=== PATIENT | female | born 1950 | race Caucasian/White ===

== ENCOUNTER 2018-06-24 12:07 | Inpatient (IN) | payer MEDICARE, MEDICAID ==
[~2018-06-24] VITALS: Ht 168.9 cm; Wt 142.9 kg
[~2018-06-24 12:07] MED LIST: ALBU8.5H8 INH; AMLO10TA8 PO; ARIP15TA3 PO; CITA20TA6 PO; CLOP75TA PO; FLUT1DIS3 INH; LAMO100T PO; LISI-170 PO; METF500T17 PO; METO25TA35 PO; MONT10TA9 PO; NITR0.4T28 SL; OMEP40CA6 PO
[2018-06-24 15:25] VITALS: BP 140/98
[2018-06-24] MEDS ORDERED: PLEASE ENTER HEIGHT AND WEIGHT MC SCH (16:30)
[2018-06-24] MEDS ORDERED: DEXTROSE 4 GM TAB.CHEW PO PRN (17:00)
[2018-06-24] MEDS ORDERED: LABETALOL 5MG/ML, 20ML IVPush PRN (17:00)
[2018-06-24] MEDS ORDERED: ENALAPRILAT 1.25 MG/ML, 2ML IVPush PRN (17:00)
[2018-06-24] MEDS ORDERED: DEXTROSE 50%, 50ML SYRINGE IVPush PRN (17:00)
[2018-06-24] MEDS ORDERED: GLUCAGON 1 MG IM PRN (17:00)
[2018-06-24] MEDS ORDERED: TEMPLATE NON-FORMULARY MED. (Albuterol Sulfate (Proair Hfa) 2 PUFFS) INH PRN (17:00)
[2018-06-24] MEDS ORDERED: ALBUTEROL/IPRATROPIUM 2.5MG/0.5MG, 3 ML NPPB PRN (17:30)
[2018-06-24] MEDS: HEPARIN 5,000 UNITS/ML, 1ML SQ SCH (17:50)
[2018-06-24 17:57] LABS: TROPONIN I < 0.015 ng/mL (0.000-0.045)
[2018-06-24 18:03] LABS: THYROID STIMULATING HORMONE 0.241 mIU/L (0.358-3.740)
[2018-06-24 18:26] LABS: MICROSCOPIC NOT IND
[2018-06-24] MEDS: POLYETHYLENE GLYCOL 17 GM PACKET PO PRN (18:26)
[2018-06-24] MEDS: HYDROcodone/APAP 5/325 TABLET PO PRN ×2 (18:27→22:54)
[2018-06-24 18:42] LABS: CULTURE INDICATED? NO
[2018-06-24] MEDS ORDERED: GABA300C10 PO (18:56)
[2018-06-24] MEDS ORDERED: HYDR200T72 PO (18:56)
[2018-06-24] MEDS ORDERED: FURO40TA6 PO (18:56)
[2018-06-24] MEDS ORDERED: PRIM250T34 PO (18:56)
[2018-06-24] MEDS ORDERED: ATOR40TA78 PO (18:56)
[2018-06-24] MEDS ORDERED: ASPI81TA45 PO (18:56)
[2018-06-24] MEDS ORDERED: HYDR-3307 PO (18:56)
[2018-06-24 19:25] VITALS: BP 158/88
[2018-06-24] MEDS ORDERED: CLOPIDOGREL 75 MG TABLET PO SCH (21:00)
[2018-06-24] MEDS ORDERED: AMLODIPINE 10 MG TAB PO SCH (21:00)
[2018-06-24 22:51] LABS: TROPONIN I < 0.015 ng/mL (0.000-0.045)
[2018-06-24] MEDS: TEMPLATE NON-FORMULARY MED. (Fluticasone/Salmeterol** (Advair 250-50 Diskus**) 1 PUFF) INH SCH (22:52)
[2018-06-24] MEDS: CITALOPRAM 20 MG TABLET PO SCH (22:54)
[2018-06-24] MEDS: DOCUSATE 100 MG CAPSULE PO SCH (22:54)
[2018-06-24] MEDS: INSULIN LISPRO 100 UNITS/ML, PEN SQ-INSULIN SCH (22:57)
[2018-06-24] MEDS: SODIUM CHLORIDE FLUSH 10ML SYR IVF SCH (23:00)
[2018-06-25] VITALS (10 sets, daily range): BP systolic 88–144; BP diastolic 50–82
[2018-06-25] MEDS ORDERED: MAGNESIUM SULFATE PMX 2GM/50ML 50 ML IV ONE
[2018-06-25] MEDS: HEPARIN 5,000 UNITS/ML, 1ML SQ SCH ×2 (00:49→10:09)
[2018-06-25] MEDS: HYDROcodone/APAP 5/325 TABLET PO PRN ×3 (05:40→16:10)
[2018-06-25] MEDS: ASPIRIN 325 MG TABLET EC PO SCH (05:40)
[2018-06-25] MEDS: OMEPRAZOLE 20 MG CAPSULE.DR PO SCH (05:40)
[2018-06-25 06:15] LABS: BASOPHILS % (AUTO) 0 % (0-1); EOSINOPHILS % (AUTO) 0 % (1-7); LYMPHOCYTES # (AUTO) 1.69 x10^3/uL (1-3.4); LYMPHOCYTES % (AUTO) 12 % (22-44); MD NO; MEAN CORPUSCULAR HEMOGLOBIN 24.5 pg (27.0-34.8); MEAN CORPUSCULAR HGB CONC 32.6 g/dL (32.4-35.8); MEAN CORPUSCULAR VOLUME 75.3 fL (80-100); MONOCYTES # (AUTO) 0.95 x10^3/uL (0.2-0.8); MONOCYTES % (AUTO) 7 % (2-9); NEUTROPHILS % (AUTO) 82 % (42-75); PLATELET COUNT 423 x10^3/uL (130-400); RED CELL DISTRIBUTION WIDTH 19.1 % (9.6-15.2)
[2018-06-25 06:26] LABS: CHLORIDE 108 mmol/L (98-107)
[2018-06-25 06:38] LABS: ALANINE AMINOTRANSFERASE 29 U/L (12-78); ALBUMIN 3.2 g/dL (3.4-5.0); ALKALINE PHOSPHATASE 71 U/L (45-117); ANION GAP 4 mmol/L (5-15); BILIRUBIN,TOTAL 0.2 mg/dL (0.2-1.0); CALCIUM 8.6 mg/dL (8.5-10.1); CREATININE 0.69 mg/dL (0.55-1.02); TOTAL PROTEIN 6.9 g/dL (6.4-8.2)
[2018-06-25] MEDS ORDERED: POTASSIUM CHLORIDE 20 MEQ TAB.ER.PRT PO ONE (07:00)
[2018-06-25] MEDS: INSULIN LISPRO 100 UNITS/ML, PEN SQ-INSULIN SCH ×4 (07:00→20:29)
[2018-06-25 07:35] LABS: FREE T4 (FREE THYROXINE) 0.91 ng/dL (0.76-1.46)
[2018-06-25 07:52] LABS: INTERNATIONAL NORMALIZED RATIO 0.99 (0.93-1.1); PROTHROMBIN TIME 10.4 Seconds (9.6-11.5)
[2018-06-25] MEDS: TEMPLATE NON-FORMULARY MED. (Fluticasone/Salmeterol** (Advair 250-50 Diskus**) 1 PUFF) INH SCH ×2 (09:00→20:28)
[2018-06-25] MEDS: ACETAMINOPHEN 325 MG TABLET PO PRN (10:10)
[2018-06-25] MEDS: SODIUM CHLORIDE FLUSH 10ML SYR IVF SCH ×2 (10:11→20:10)
[2018-06-25] MEDS: DOCUSATE 100 MG CAPSULE PO SCH ×2 (10:11→20:09)
[2018-06-25] MEDS ORDERED: SODIUM CHLORIDE 0.9% 1,000 ML IV SCH ×2 (11:00→20:00)
[2018-06-25] MEDS: CALCIUM CARBONATE 500 MG TAB.CHEW PO PRN (11:17)
[2018-06-25] MEDS: NITROGLYCERIN 0.4 MG BOTTLE (25 TABS) SL PRN ×2 (11:22→11:29)
[2018-06-25 12:31] LABS: TROPONIN I < 0.015 ng/mL (0.000-0.045)
[2018-06-25] MEDS ORDERED: VERAPAMIL 2.5 MG/ML, 2ML ONE (13:07)
[2018-06-25] MEDS ORDERED: BIVALIRUDIN 250 MG ONE ×2 (13:07→13:38)
[2018-06-25] MEDS ORDERED: FENTANYL PF 100 MCG/2ML ONE (13:07)
[2018-06-25] MEDS ORDERED: MIDAZOLAM 1 MG/ML, 5ML ONE (13:07)
[2018-06-25] MEDS ORDERED: LIDOCAINE 1%, 20ML ONE (13:07)
[2018-06-25] MEDS ORDERED: HEPARIN 1,000 UNITS/ML, 10ML ONE (13:07)
[2018-06-25] MEDS ORDERED: TICAGRELOR 90 MG TABLET ONE (13:07)
[2018-06-25 13:43] LABS: HEMOGLOBIN A1C 5.9 % (4.2-6.3)
[2018-06-25] MEDS: BISACODYL 10 MG SUPP PR SCH (15:00)
[2018-06-25] MEDS: MORPHINE SULFATE 4 MG/ML, 1ML IVPush PRN ×2 (19:59→22:29)
[2018-06-25] MEDS: ATORVASTATIN 40 MG TABLET PO SCH (20:09)
[2018-06-25] MEDS: CITALOPRAM 20 MG TABLET PO SCH (20:09)
[2018-06-26 00:25] VITALS: BP 125/55
[2018-06-26] MEDS: HYDROcodone/APAP 5/325 TABLET PO PRN ×2 (03:23→16:57)
[2018-06-26 04:00] LABS: BASOPHILS # (AUTO) 0.05 x10^3/uL (0-0.1); BASOPHILS % (AUTO) 1 % (0-1); EOSINOPHILS # (AUTO) 0.01 x10^3/uL (0-0.4); EOSINOPHILS % (AUTO) 0 % (1-7); LYMPHOCYTES # (AUTO) 2.37 x10^3/uL (1-3.4); LYMPHOCYTES % (AUTO) 24 % (22-44); MD NO; MEAN CORPUSCULAR HEMOGLOBIN 24.3 pg (27.0-34.8); MEAN CORPUSCULAR HGB CONC 31.6 g/dL (32.4-35.8); MONOCYTES # (AUTO) 0.86 x10^3/uL (0.2-0.8); MONOCYTES % (AUTO) 9 % (2-9); NEUTROPHILS # (AUTO) 6.62 x10^3/uL (1.8-6.8); NEUTROPHILS % (AUTO) 67 % (42-75); PLATELET COUNT 377 x10^3/uL (130-400); RED BLOOD COUNT 3.75 x10^6/uL (3.82-5.3); RED CELL DISTRIBUTION WIDTH 19.5 % (9.6-15.2)
[2018-06-26 04:02] LABS: ANION GAP 5 mmol/L (5-15); CALCIUM 8.4 mg/dL (8.5-10.1); CHLORIDE 111 mmol/L (98-107)
[2018-06-26 04:06] LABS: ALANINE AMINOTRANSFERASE 26 U/L (12-78); ALKALINE PHOSPHATASE 64 U/L (45-117); BILIRUBIN,TOTAL 0.5 mg/dL (0.2-1.0); CREATININE 0.71 mg/dL (0.55-1.02); TOTAL PROTEIN 6.3 g/dL (6.4-8.2)
[2018-06-26] MEDS: OMEPRAZOLE 20 MG CAPSULE.DR PO SCH (05:57)
[2018-06-26] MEDS: ASPIRIN 325 MG TABLET EC PO SCH (05:58)
[2018-06-26] MEDS: ONDANSETRON 2MG/ML, 2ML IVPush PRN ×2 (05:58→14:30)
[2018-06-26] MEDS ORDERED: POTASSIUM CHLORIDE 20 MEQ TAB.ER.PRT PO ONE (06:30)
[2018-06-26] MEDS: INSULIN LISPRO 100 UNITS/ML, PEN SQ-INSULIN SCH ×4 (07:00→20:12)
[2018-06-26 07:55] VITALS: BP 119/60
[2018-06-26] MEDS: POLYETHYLENE GLYCOL 17 GM PACKET PO PRN (09:50)
[2018-06-26] MEDS: TEMPLATE NON-FORMULARY MED. (Fluticasone/Salmeterol** (Advair 250-50 Diskus**) 1 PUFF) INH SCH ×2 (09:50→20:12)
[2018-06-26] MEDS: SODIUM CHLORIDE FLUSH 10ML SYR IVF SCH ×2 (09:50→20:11)
[2018-06-26] MEDS: DOCUSATE 100 MG CAPSULE PO SCH ×2 (09:50→20:11)
[2018-06-26] MEDS: CALCIUM CARBONATE 500 MG TAB.CHEW PO PRN (12:09)
[2018-06-26] MEDS: BISACODYL 10 MG SUPP PR SCH (12:10)
[2018-06-26] MEDS: FERROUS SULFATE 325 MG TABLET PO SCH ×2 (12:12→20:11)
[2018-06-26 14:37] LABS: OCCULT BLOOD NEGATIVE (NEGATIVE)
[2018-06-26 15:10] VITALS: BP 147/87
[2018-06-26] MEDS ORDERED: PANTOPRAZOLE 40 MG IV IVPush ONE (17:30)
[2018-06-26] MEDS: CITALOPRAM 20 MG TABLET PO SCH (20:11)
[2018-06-26] MEDS: ATORVASTATIN 40 MG TABLET PO SCH (20:11)
[2018-06-26 22:25] VITALS: BP 133/77
[2018-06-26] MEDS: ACETAMINOPHEN 325 MG TABLET PO PRN (23:11)
[2018-06-27 01:38] VITALS: BP 136/77
[2018-06-27] MEDS: CALCIUM CARBONATE 500 MG TAB.CHEW PO PRN (01:47)
[2018-06-27] MEDS: HYDROcodone/APAP 5/325 TABLET PO PRN ×2 (04:01→10:30)
[2018-06-27 05:14] LABS: BASOPHILS # (AUTO) 0.13 x10^3/uL (0-0.1); BASOPHILS % (AUTO) 1 % (0-1); EOSINOPHILS # (AUTO) 0.08 x10^3/uL (0-0.4); EOSINOPHILS % (AUTO) 1 % (1-7); LYMPHOCYTES # (AUTO) 2.41 x10^3/uL (1-3.4); LYMPHOCYTES % (AUTO) 25 % (22-44); MD NO; MEAN CORPUSCULAR HEMOGLOBIN 24.5 pg (27.0-34.8); MEAN CORPUSCULAR VOLUME 76.6 fL (80-100); MEAN PLATELET VOLUME 8.2 fL (7.4-10.4); MONOCYTES # (AUTO) 0.75 x10^3/uL (0.2-0.8); MONOCYTES % (AUTO) 8 % (2-9); NEUTROPHILS # (AUTO) 6.35 x10^3/uL (1.8-6.8); NEUTROPHILS % (AUTO) 65 % (42-75); PLATELET COUNT 363 x10^3/uL (130-400); RED BLOOD COUNT 3.97 x10^6/uL (3.82-5.3); RED CELL DISTRIBUTION WIDTH 19.1 % (9.6-15.2)
[2018-06-27 05:19] LABS: ALBUMIN 3.1 g/dL (3.4-5.0); ANION GAP 4 mmol/L (5-15); CALCIUM 8.7 mg/dL (8.5-10.1); CHLORIDE 108 mmol/L (98-107)
[2018-06-27 05:24] LABS: ALANINE AMINOTRANSFERASE 27 U/L (12-78); ALKALINE PHOSPHATASE 69 U/L (45-117); BILIRUBIN,TOTAL 0.3 mg/dL (0.2-1.0); CREATININE 0.68 mg/dL (0.55-1.02); TOTAL PROTEIN 6.6 g/dL (6.4-8.2)
[2018-06-27] MEDS: OMEPRAZOLE 20 MG CAPSULE.DR PO SCH (06:15)
[2018-06-27] MEDS: ASPIRIN 325 MG TABLET EC PO SCH (06:15)
[2018-06-27] MEDS: INSULIN LISPRO 100 UNITS/ML, PEN SQ-INSULIN SCH ×2 (07:42→11:00)
[2018-06-27] MEDS ORDERED: ONDANSETRON 2MG/ML, 2ML IVPush PRN (08:00)
[2018-06-27] MEDS: BISACODYL 10 MG SUPP PR SCH (08:20)
[2018-06-27] MEDS: FERROUS SULFATE 325 MG TABLET PO SCH (08:20)
[2018-06-27] MEDS: DOCUSATE 100 MG CAPSULE PO SCH (08:20)
[2018-06-27] MEDS: TEMPLATE NON-FORMULARY MED. (Fluticasone/Salmeterol** (Advair 250-50 Diskus**) 1 PUFF) INH SCH (08:20)
[2018-06-27] MEDS: SODIUM CHLORIDE FLUSH 10ML SYR IVF SCH (08:20)
[2018-06-27 08:34] VITALS: BP 132/83
[2018-06-27] MEDS: ONDANSETRON 2MG/ML, 2ML IVPush PRN (13:31)
[2018-06-27 14:04] VITALS: BP 169/97
[2018-06-27] MEDS ORDERED: METOPROLOL TARTRATE 25 MG TABLET PO SCH (18:00)
[2018-06-28] MEDS ORDERED: PANTOPROZOLE 40MG TABLET PO SCH (06:00)
== END 2018-06-27 16:51 | DRG 286 ==
LOC: 5SO 15:37
PROVIDERS: ADMIT Internal Medicine; ATTEND Internal Medicine Cardiovascular Disease
PROC: 4A023N7 Measurement of Cardiac Sampling and Pressure, Left Heart, Percutaneous Approach (ICD-10-PCS; principal; 2018-06-25)
PROC: B2111ZZ Fluoroscopy of Multiple Coronary Arteries using Low Osmolar Contrast (ICD-10-PCS; 2018-06-25)
PROC: B2151ZZ Fluoroscopy of Left Heart using Low Osmolar Contrast (ICD-10-PCS; 2018-06-25)
DX: I25.110 Atherosclerotic heart disease of native coronary artery with unstable angina pectoris (principal); R53.2 Functional quadriplegia; K66.1 Hemoperitoneum; Z68.42 Body mass index [BMI] 45.0-49.9, adult; I15.9 Secondary hypertension, unspecified; I10 Essential (primary) hypertension; E66.01 Morbid (severe) obesity due to excess calories; J44.9 Chronic obstructive pulmonary disease, unspecified; F17.210 Nicotine dependence, cigarettes, uncomplicated; E78.5 Hyperlipidemia, unspecified; E11.9 Type 2 diabetes mellitus without complications; D50.9 Iron deficiency anemia, unspecified; G47.33 Obstructive sleep apnea (adult) (pediatric); I25.2 Old myocardial infarction; K21.9 Gastro-esophageal reflux disease without esophagitis; K44.9 Diaphragmatic hernia without obstruction or gangrene; K59.00 Constipation, unspecified; R32 Unspecified urinary incontinence; R79.1 Abnormal coagulation profile; Z79.84 Long term (current) use of oral hypoglycemic drugs; Z82.0 Family history of epilepsy and other diseases of the nervous system; Z86.73 Personal history of transient ischemic attack (TIA), and cerebral infarction without residual deficits; Z90.710 Acquired absence of both cervix and uterus; Z95.5 Presence of coronary angioplasty implant and graft; Z98.84 Bariatric surgery status; Z99.81 Dependence on supplemental oxygen; I70.208 Unspecified atherosclerosis of native arteries of extremities, other extremity
CPT/HCPCS: 36415; 71045; 74018; 74176; 80053; 81003; 82272; 82728; 82962; 83036; 83540; 83550; 83735; 84439; 84443; 84466; 84484; 85014; 85018; 85025; 85610; 85730; 86850; 86900; 87040; 93005; 93458; 93970; 99156; 99157; C1760; C1769; C1894; G0378; J0583; J1644; J2250; J2405; J3010; C9113; J3475; J7030; Q9967

== ENCOUNTER 2019-08-06 01:15 | Inpatient (IN) | payer MEDICARE, MEDICAID ==
[~2019-08-06] VITALS: Ht 172.7 cm; Wt 146.0 kg
[~2019-08-06 01:15] MED LIST changes: +ASPI81TA45 PO; +ATOR40TA78 PO; +FURO40TA6 PO; +GABA300C10 PO; +HYDR-3246 PO; +HYDR200T72 PO; -LAMO100T PO; +LAMO100T8 PO; +MONT10TA11 PO; -MONT10TA9 PO; +OMEP40CA42 PO; -OMEP40CA6 PO; +PRIM250T34 PO
[2019-08-06] MEDS ORDERED: CEFTRIAXONE PMX 1GM/50ML 50 ML IVPB ONE (01:30)
[2019-08-06] MEDS ORDERED: SODIUM CHLORIDE FLUSH 10ML SYR IVF ONE (01:30)
[2019-08-06] MEDS ORDERED: VANCOMYCIN PER PHARMACY MC ONE (01:30)
[2019-08-06] MEDS ORDERED: PROPOFOL 100 ML IV ONE (01:45)
[2019-08-06] MEDS ORDERED: PLEASE ENTER HEIGHT AND WEIGHT MC SCH (02:00)
[2019-08-06] MEDS: PROPOFOL 100 ML IV PRN ×3 (02:13→17:31)
--- NOTE | 2019-08-06 02:26 | NUR ---
PT TRANSFER FROM [facility] FOR PERSUMED UROSEPSIS. PT WITH HX OF COPD, CHF, DM. ACCORDING TO EMS PT WAS FOUND IN HER HOME COVERED IN FECES AND HYPOXIC IN THE 80S. PT WAS INITIAL TRIED ON BIPAP AND WAS UNABLE TO TOLERATE AND WAS INTUBATED PRIOR TO ARRIVAL. SHE RECEIVED VERSED, IVF BOLUS X 2, AND ZOSYN LUNCH TRUCK OPERATOR. SHE RECEIVED KETAMINE EN ROUTE.
[2019-08-06] MEDS ORDERED: VANCOMYCIN 2,500 MG in SODIUM CHLORIDE 0.9% 500 ML IV ONE (02:30)
[2019-08-06 02:37] LABS: MEAN CORPUSCULAR HEMOGLOBIN 22.6 pg (27.0-34.8); MEAN CORPUSCULAR HGB CONC 30.9 g/dL (32.4-35.8); MEAN CORPUSCULAR VOLUME 73.1 fL (80-100); MEAN PLATELET VOLUME 7.7 fL (7.4-10.4); PLATELET COUNT 350 x10^3/uL (130-400); RED CELL DISTRIBUTION WIDTH 20.2 % (9.6-15.2)
[2019-08-06 02:42] LABS: INTERNATIONAL NORMALIZED RATIO 1.01 (0.93-1.1); PROTHROMBIN TIME 10.7 Seconds (9.6-11.5)
[2019-08-06 02:45] LABS: ALANINE AMINOTRANSFERASE 80 U/L (12-78); ALBUMIN 2.8 g/dL (3.4-5.0); ANION GAP 13 mmol/L (5-15); CALCIUM 8.2 mg/dL (8.5-10.1); CHLORIDE 106 mmol/L (98-107); CREATININE 1.98 mg/dL (0.55-1.02)
[2019-08-06 02:48] LABS: ALKALINE PHOSPHATASE 69 U/L (45-117); BILIRUBIN,TOTAL 0.8 mg/dL (0.2-1.0); TOTAL PROTEIN 7.4 g/dL (6.4-8.2)
--- NOTE | 2019-08-06 02:55 | NUR ---
[facility] [phone]
--- NOTE | 2019-08-06 03:03 | NUR ---
Spoke with son and daughter chet to update about pt condition. obtained consent for blood draw from son ashanti colby because of employee exposure.
[2019-08-06 03:14] LABS: BASOPHILS # (AUTO) 0.01 x10^3/uL (0-0.1); BASOPHILS % (AUTO) 0 % (0-1); EOSINOPHILS % (AUTO) 0 % (1-7); LYMPHOCYTES # (AUTO) 1.09 x10^3/uL (1-3.4); LYMPHOCYTES % (AUTO) 6 % (22-44); MD SCAN; MONOCYTES # (AUTO) 0.85 x10^3/uL (0.2-0.8); MONOCYTES % (AUTO) 5 % (2-9); NEUTROPHILS % (AUTO) 89 % (42-75)
[2019-08-06] MEDS ORDERED: HEPARIN 5,000 UNITS/ML, 1ML IV ONE (03:30)
[2019-08-06] MEDS ORDERED: ASPIRIN 300 MG SUPP PR ONE (03:30)
[2019-08-06 03:53] LABS: MICROSCOPIC INDICATED
[2019-08-06 04:02] LABS: CLOSTRIDIUM DIFFICILE ANTIGEN NEGATIVE; CLOSTRIDIUM DIFFICILE TOXIN NEGATIVE (Negative)
[2019-08-06] MEDS ORDERED: HEPARIN 25,000 UNITS/250ML PMX 250 ML ONE (04:08)
[2019-08-06] MEDS ORDERED: HEPARIN 5,000 UNITS/ML, 1ML ONE (04:08)
[2019-08-06] MEDS ORDERED: CEFTRIAXONE PMX 1GM/50ML 50 ML ONE (04:08)
[2019-08-06] MEDS ORDERED: SODIUM CHLORIDE 0.9% 1,000 ML IV ONE (04:25)
[2019-08-06] MEDS ORDERED: FUROSEMIDE 40 MG/4 ML IV ONE (04:30)
[2019-08-06] MEDS: HEPARIN 25,000 UNITS/250ML PMX 250 ML IV PRN (04:45)
[2019-08-06] MEDS ORDERED: FUROSEMIDE 40 MG/4 ML ONE (04:47)
[2019-08-06] MEDS ORDERED: ONDA4TAB7 PO (05:13)
[2019-08-06] MEDS ORDERED: FLUT1AER INH (05:13)
[2019-08-06 05:40] VITALS: BP 117/66
[2019-08-06] MEDS ORDERED: NOREPINEPHRINE 8 MG in SODIUM CHLORIDE 0.9% 242 ML IV PRN (05:41)
[2019-08-06] MEDS ORDERED: PROPOFOL 100 ML IV PRN (05:41)
[2019-08-06] MEDS ORDERED: FENTANYL PF 100 MCG/2ML IVPush PRN (06:00)
[2019-08-06] MEDS ORDERED: GLUCAGON 1 MG IM PRN (06:00)
[2019-08-06] MEDS ORDERED: BISACODYL 10 MG SUPP PR PRN (06:00)
[2019-08-06] MEDS ORDERED: LACTULOSE 20 GM/30 ML UDC NG PRN (06:00)
[2019-08-06] MEDS ORDERED: FAMOTIDINE 20 MG/2 ML IV SCH (06:00)
[2019-08-06] MEDS ORDERED: SENNA/DOCUSATE TABLET NG PRN (06:00)
[2019-08-06] MEDS ORDERED: PHARMACY MAY ADJ FOR RENAL FX MC SCH (06:00)
[2019-08-06] MEDS ORDERED: DEXTROSE 4 GM TAB.CHEW PO PRN (06:00)
[2019-08-06] MEDS ORDERED: ACETAMINOPHEN 650 MG/20.3 ML UDC PO/NG PRN (06:00)
[2019-08-06] MEDS ORDERED: DEXTROSE 50%, 50ML SYRINGE IVPush PRN (06:00)
[2019-08-06] MEDS ORDERED: SENNA 176 MG/5 ML ORAL SOL NG PRN (06:00)
[2019-08-06] MEDS ORDERED: LIDOCAINE-MPF 1%, 2ML ENDO PRN (06:00)
--- NOTE | 2019-08-06 06:09 | NUR ---
LATE ENTRY: PT TRANSFERED FROM [facility] FOR HYPOXIMIA, R/O COVID AND POSSIBLE CDIFF. PT WAS INTUBATED UPON ARRIVE. PIV WAS INFILTRATED. PT RECIEVED ZOSYN MARKET REPORTER. PIV PLACED AND PT PLACED ON PROPOFOL FOR SEDATION. AFTER MULTIPLE PIV ATTEMPTS PT WAS GIVEN A CENTRAL LINE MY MD. RECTAL TUBE WAS ALSO PLACED DUE TO PTS DIARRHEA INCONTINENCE. PT STARTED ON ROCEPHIN, VANCO AND HEPARIN. PT MDICATED WITH LASIX AND NS IS RUNNING. PT HAS REMAINED STABLE THROUGHOUT STAY. REPORT TO KIRAN VILLANUEVA.
[2019-08-06] MEDS ORDERED: LIDOCAINE-MPF 1%, 5ML ENDO PRN (07:00)
[2019-08-06] MEDS ORDERED: PIPERACILLIN/TAZO/PMX 3.375GM 50 ML IV SCH (07:00)
[2019-08-06] MEDS: ALBUTEROL/IPRATROPIUM 2.5MG/0.5MG, 3 ML INLINE SCH ×5 (07:05→22:50)
[2019-08-06] MEDS: SODIUM CHLORIDE FLUSH 10ML SYR IVF SCH (08:36)
[2019-08-06] MEDS: NOREPINEPHRINE 8 MG in SODIUM CHLORIDE 0.9% 242 ML IV PRN ×2 (09:06→17:45)
--- NOTE | 2019-08-06 11:33 | NUR ---
TF goal when ordered: with or without propofol: VITAL HIGH PROTEIN @ 80ML/HR
[2019-08-06] MEDS ORDERED: VANCOMYCIN PER PHARMACY MC PRN (12:30)
[2019-08-06] MEDS: DOXYCYCLINE 100 MG in DEXTROSE 5% 250 ML IV SCH (12:41)
[2019-08-06] MEDS: HEPARIN 5,000 UNITS/ML, 1ML IV PRN ×2 (13:24→20:15)
[2019-08-06] MEDS ORDERED: PHARMACOKINETIC CONSULTATION MC ONE (13:30)
[2019-08-06] MEDS ORDERED: PHARMACOKINETIC MONITORING MC PRN (13:30)
[2019-08-07] MEDS: DOXYCYCLINE 100 MG in DEXTROSE 5% 250 ML IV SCH (00:24)
[2019-08-07] MEDS: SODIUM CHLORIDE FLUSH 10ML SYR IVF SCH (00:24)
[2019-08-07] MEDS: NOREPINEPHRINE 8 MG in SODIUM CHLORIDE 0.9% 242 ML IV PRN (00:25)
[2019-08-07] MEDS: HEPARIN 25,000 UNITS/250ML PMX 250 ML IV PRN (00:32)
[2019-08-07] MEDS: PROPOFOL 100 ML IV PRN ×2 (00:33→05:18)
[2019-08-07] MEDS: ALBUTEROL/IPRATROPIUM 2.5MG/0.5MG, 3 ML INLINE SCH ×2 (02:30→07:03)
[2019-08-07] MEDS ORDERED: CEFTRIAXONE PMX 1GM/50ML 50 ML IV SCH (04:30)
[2019-08-07 04:31] LABS: ANION GAP 12 mmol/L (5-15); CALCIUM 7.3 mg/dL (8.5-10.1); CHLORIDE 111 mmol/L (98-107)
[2019-08-07 04:33] LABS: MEAN CORPUSCULAR HEMOGLOBIN 22.7 pg (27.0-34.8); MEAN CORPUSCULAR HGB CONC 31.2 g/dL (32.4-35.8); MEAN PLATELET VOLUME 8.9 fL (7.4-10.4); PLATELET COUNT 234 x10^3/uL (130-400); RED BLOOD COUNT 4.93 x10^6/uL (3.82-5.3); RED CELL DISTRIBUTION WIDTH 20.2 % (9.6-15.2)
[2019-08-07] MEDS: HEPARIN 5,000 UNITS/ML, 1ML IV PRN (05:15)
[2019-08-07 05:48] LABS: BASOPHILS # (AUTO) 0.02 x10^3/uL (0-0.1); BASOPHILS % (AUTO) 0 % (0-1); EOSINOPHILS % (AUTO) 0 % (1-7); LYMPHOCYTES # (AUTO) 1.58 x10^3/uL (1-3.4); LYMPHOCYTES % (AUTO) 13 % (22-44); MD SCAN; MONOCYTES % (AUTO) 8 % (2-9); NEUTROPHILS # (AUTO) 9.31 x10^3/uL (1.8-6.8); NEUTROPHILS % (AUTO) 78 % (42-75)
[2019-08-07] MEDS ORDERED: EPINEPHRINE SYRINGE 0.1 MG/ML, 10ML ONE (07:09)
[2019-08-07] MEDS ORDERED: CODE BLUE RESPONSE XX ONE (07:09)
[2019-08-07] MEDS ORDERED: EPINEPHRINE 1 MG/ML, 1ML ONE ×2 (07:10)
[2019-08-07] MEDS ORDERED: FAMOTIDINE 20 MG/2 ML IV SCH (09:00)
== END 2019-08-07 07:16 | disposition expired | DRG 871 ==
LOC: ED 01:22 → EDIP 04:42 → ICU 06:27
PROVIDERS: ADMIT Family Medicine; ATTEND Internal Medicine
PROC: 02HV33Z Insertion of Infusion Device into Superior Vena Cava, Percutaneous Approach (ICD-10-PCS; principal; 2019-08-06)
PROC: 5A1935Z Respiratory Ventilation, Less than 24 Consecutive Hours (ICD-10-PCS; 2019-08-06)
PROC: 0BH17EZ Insertion of Endotracheal Airway into Trachea, Via Natural or Artificial Opening (ICD-10-PCS; 2019-08-06)
DX: A41.9 Sepsis, unspecified organism (principal); J18.9 Pneumonia, unspecified organism; I21.4 Non-ST elevation (NSTEMI) myocardial infarction; I50.23 Acute on chronic systolic (congestive) heart failure; J96.01 Acute respiratory failure with hypoxia; N17.0 Acute kidney failure with tubular necrosis; R53.2 Functional quadriplegia; R65.21 Severe sepsis with septic shock; J44.0 Chronic obstructive pulmonary disease with (acute) lower respiratory infection; N12 Tubulo-interstitial nephritis, not specified as acute or chronic; E11.9 Type 2 diabetes mellitus without complications; E66.01 Morbid (severe) obesity due to excess calories; E78.5 Hyperlipidemia, unspecified; G47.33 Obstructive sleep apnea (adult) (pediatric); I11.0 Hypertensive heart disease with heart failure; I25.10 Atherosclerotic heart disease of native coronary artery without angina pectoris; I46.9 Cardiac arrest, cause unspecified; K21.9 Gastro-esophageal reflux disease without esophagitis; M77.10 Lateral epicondylitis, unspecified elbow; N30.91 Cystitis, unspecified with hematuria; Z20.828 Contact with and (suspected) exposure to other viral communicable diseases; Z82.0 Family history of epilepsy and other diseases of the nervous system; Z86.73 Personal history of transient ischemic attack (TIA), and cerebral infarction without residual deficits; Z87.891 Personal history of nicotine dependence; Z90.710 Acquired absence of both cervix and uterus; Z95.5 Presence of coronary angioplasty implant and graft; Z98.84 Bariatric surgery status; Z90.49 Acquired absence of other specified parts of digestive tract; Z83.3 Family history of diabetes mellitus; Z79.82 Long term (current) use of aspirin; Z90.89 Acquired absence of other organs
CPT/HCPCS: 36415; 36600; 51702; 71045; 80048; 80053; 80202; 81001; 82533; 82728; 82803; 82962; 83036; 83540; 83550; 83605; 83735; 83880; 84100; 84145; 84478; 84484; 85025; 85520; 85610; 85730; 87040; 87070; 87077; 87086; 87147; 87186; 87205; 87324; 89055; 93005; 93308; 93321; 93325; 94002; 94003; 94640; 96365; 96375; 99291; G0378; J0171; J0696; J1644; J1940; J2704; J3370; J7060; J3490; J7030; J7040; J7050; U0001-CS